=== PATIENT | female | born 1970 | race Caucasian/White ===

== ENCOUNTER 2020-06-14 15:02 | Outpatient (RCR) | payer BC, SELFPAY | END 2020-08-07 23:59 | LOC: IMMUN 15:02 | PROVIDERS: PCP Preventive Medicine Occupational Medicine; Referring Provider Family Medicine; Visit Provider Family Medicine | DX: Z23 Encounter for immunization (principal) | CPT/HCPCS: 0001A; 0002A; 91300 ==

== ENCOUNTER → 2024-10-03 | Outpatient (CLI) | payer OTHER, SELFPAY ==
[2024-10-03 10:24] LABS: Hematocrit 43.5 % (37-47); Hemoglobin 16.0 g/dL (12.0-15.0); Mean Corp Hgb Conc 36.8 g/dL (32-36); Mean Corpuscular Volume 88.4 fL (81-99); Mean Platelet Vol. 10.4 fl (6.2-12.0); Platelet Count 238 K/mm3 (150-450); RBC Distribution Width CV 12.4 % (11.6-14.6); RBC Distribution Width SD 39.7 fl (35.1-43.9); Red Blood Count 4.92 M/mm3 (4.2-5.4); White Blood Count 5.5 K/mm3 (4.4-11.0)
[2024-10-03 10:54] LABS: Cholesterol 187 mg/dL (<=200); Low Density Lipoprotein Calc. 107 mg/dL; Triglycerides 204 mg/dL; Very Low Density Lipoprotein 41 mg/dL (5-40); cholesterol:hdl ratio screen 4.76
[2024-10-03 10:57] LABS: AST(SGOT) 28 U/L (<=31); Alanine Aminotransfer ALT/SGPT 19 U/L (<=34); Albumin, Serum 4.2 g/dL (3.5-5.0); Alkaline Phosphatase 81 U/L (35-104); Anion Gap 10 (5-15); BUN 10 mg/dL (4-19); BUN/Creat Ratio 13.0 RATIO (10-20); Calcium,Total 9.1 mg/dL (7.6-11.0); Carbon Dioxide 23.3 mmol/L (21.0-32.0); Chloride 105 mmol/L (98-108); Globulin 2.5 g/dL (2.2-4.2); Glucose 93 mg/dL (70-99); Potassium 4.5 mmol/L (3.3-5.1)
== END | disposition home or self-care (01) ==
LOC: LAB 09:57
PROVIDERS: PCP Student in an Organized Health Care Education/Training Program; Referring Provider Student in an Organized Health Care Education/Training Program; Visit Provider Student in an Organized Health Care Education/Training Program
DX: I10 Essential (primary) hypertension (principal); Z79.890 Hormone replacement therapy; Z13.1 Encounter for screening for diabetes mellitus; Z13.220 Encounter for screening for lipoid disorders
CPT/HCPCS: 36415; 80053; 80061; 85027

== ENCOUNTER → 2025-02-09 | Outpatient (CLI) | payer OTHER, SELFPAY ==
[2025-02-09 15:48] LABS: Free T3 3.5 pg/mL (2.18-3.98); Vitamin D,25 Hydroxy 104.0 ng/mL (30-100)
--- OUTSIDE RECORDS SUMMARY | 2025-02-09 16:41 | XMS RPT_ITS | CCD ---
Author Organization [facility] Care Team Providers Care Retail Account Manager Name Role Phone FABIO PEDERSON DO Primary Care Physician CANDIDA OLIVO, MILAGROS Shabazz Attending Hillary vailaeusebio PEDERSON DO, FABIO Primary Care Unavailable BESSY HOGAN DO Attending Unavailab le NICOLÁS PURVIS, FABIO Primary Care Unavailable CANDIDA OLIVO, MILAGROS Shabazz Attending Hillary vailable NICOLÁS PURVIS, FABIO Primary Care Unavailable CANDIDA OLIVO, MILAGROS Shabazz Attending Hillary bj PEDERSON DO, FABIO Primary Care Unavailable NICOLÁS PURVIS, FABIO Attending Unavailable NICOÁLS PURVIS, FABIO Primary Care Unavailable SAPNA CASILLAS, NIKKI Primary Care Physician LUIS PURVIS, DR MIKE Primary Care Physician [phone] DR CEE HERNANDEZ DO Primary Care Unavailable LUIS PURVIS, DR MIKE Attending Unavailable SAPNA CASILLAS, NIKKI Primary Care MILAGROS Norris Attending Unavailable MILAGROS TIRADO Attending Unavailable LUIS PURVIS, DR MIKE Primary Care Unavailable SAPNA CASILLAS, NIKKI Primary Care MILAGROS Norris Attending Unavailable Dr. Cee Hernandez DO Primary Care Provider [phone] Dr. Cee Hernandez DO Attending Provider [phone] Dr. Cee Hernandez DO Referring Provider [phone] Cee Hernandez Referring Unavailable Cee Hernandez Attending Unavailable Cee Hernandez Primary Care Unavailable Allergies Allergy Classification Reported Allergen(s) Allergy Type Date of Onset Reaction(s) Facility (17 sources) levoFLOXacin; Translations: [levofloxacin] Drug Allergy Nausea (finding) [facility] Work Phone: Medications Current Medications Medication Drug Class(es) Dates Sig (Normalized) Sig (Original) ascorbic acid 500 mg oral tablet (5 sources) Vitamin C Start: 03-09-2020 Vitamin C 500 mg oral tablet Dose : 500 mg = 1 tab(s), Oral, qDay, # 30 tab(s), 0 Refill(s) Start Date: 03/09/20 Status: Ordered ashwagandha (1 source) Start: 09-01-2024 ashwagandha Oral, BID, 0 Refill(s) Start Date: 09/01/24 Status: Ordered Repeat number: 1 cetirizine hydrochloride 10 mg oral tablet (17 sources) Histamine-1 Receptor Antagonist Start: 08-10-2019 Zyrtec 10 mg oral tablet Dose : 10 mg = 1 tab(s), Oral, qDay, PRN as needed for allergy symptoms, # 10 tab(s), 0 Refill(s) Start Date: 08/10/19 Status: Ordered Quantity: 10.0 Unit: tab(s) Repeat number: 1 24 hr dilTIAZem hydrochloride 120 mg extended release oral capsule (15 sources) Calcium Channel Cherelle Start: 07-01-2023 End: 04-19-2025 take 1 capsule by mouth every hour, then take 1 capsule by mouth once daily dilTIAZem 120 mg/24 hours oral capsule, extended release Dose : 120 mg = 1 cap(s), Oral, qDay, # 90 cap(s), 3 Refill(s), Pharmacy: [facility]/pharmacy #[id number], Essential hypertension, 158, cm, 03/15/24 14:58:00 EST, Height, kg, 03/15/24 14:58:00 EST, Dosing Weight Start Date: 03/15/24 Stop Date: 04/19/25 Status: Ordered Quantity: 90.0 Unit: cap(s) Repeat number: 4 Indications: Essential (primary) hypertension; Start: 06-02-2022 take 1 capsule by mo uth every hour, then take 1 capsule by mouth once daily dilTIAZem 120 mg/24 hours oral capsule, extended release Dose : 120 mg = 1 cap(s), Oral, qDay, # 90 cap(s), 3 Refill(s), [id number], Essential hypertension, 160.5, cm, 06/02/22 9:23:00 EDT, Height, kg, 06/02/22 9:23:00 EDT, Dosing Weight Start Date: 06/02/22 Status: Ordered Start: 05-07-2021 take 1 capsule by [facility] every hour, then take 1 capsule by mouth once daily dilTIAZem 120 mg/24 hours oral capsule, extended release Dose : 120 mg = 1 cap(s), Oral, qDay, # 90 cap(s), 3 Refill(s), Pharmacy: [address], Essential hypertension, 162, cm, 05/07/21 15:59:00 EST, Height, kg, 05/07/21 15:59:00 EST, Dosing Weight Start Date: 05/07/21 Status: Ordered Start: 04-01-2021 take 1 capsule by [facility] every hour, then take 1 capsule by mouth once daily dilTIAZem 120 mg/24 hours oral capsule, extended release Dose : 120 mg = 1 cap(s), Oral, qDay, # 30 cap(s), 1 Refill(s), Pharmacy: [address], Essential hypertension, 162, cm, 04/01/21 13:08:00 EST, Height, kg, 04/01/21 13:08:00 EST, Dosing Weight Start Date: 04/01/21 Status: Ordered Estrogens, Conjugated (FPC) (10 sources) Estrogen Start: 06-02-2022 conjugated est rogens qDay, 0 Refill(s) Start Date: 06/02/22 Status: Ordered Repeat number: 1 Start: 06-02-2022 conjugated est rogens qDay, 0 Refill(s) Start Date: 06/02/22 Status: Ordered ferrous sulfate 200 mg oral tablet (6 sources) Start: 12-09-2022 ferrous sulfat e 200 mg (65 mg elemental iron) oral tablet Dose : 200 mg = 1 tab(s), Oral, Daily, # 30 tab(s), 0 Refill(s) Start Date: 12/09/22 Status: Ordered Quantity: 30.0 Unit: tab(s) Repeat number: 1 flax seed oil 1000 mg oral capsule (10 sources) Start: 06-02-2022 flax seed oil 1000 mg oral capsule Dose : 1,000 mg = 1 cap(s), Oral, Daily, 0 Refill(s) Start Date: 06/02/22 Status: Ordered Repeat number: 1 Start: 06-02-2022 flax seed oil 1000 mg oral capsule Dose : 1,000 mg = 1 cap(s), Oral, Daily, 0 Refill(s) Start Date: 06/02/22 Status: Ordered ketorolac tromethamine 10 mg oral tablet (1 source) Nonsteroidal Anti-inflammatory Drug, Cyclooxygenase Inhibitor Start: 03-23-2021 End: 03-28-2021 ketorolac 10 mg oral tablet Dose : 10 mg = 1 tab(s), Oral, TID, not to exceed 40 mg/day and 5 days duration for all dose forms, X 5 day(s), # 15 tab(s), 0 Refill(s), 03/28/21 18:47:00 EST, Migraine COVID-19 Start Date: 03/23/21 Stop Date: 03/28/21 Status: Ordered liothyronine sodium 0.005 mg oral tablet (3 sources) l-Triiodothyronine Start: 03-15-2024 liothyronin e 5 mcg oral tablet Dose : 5 mcg = 1 tab(s), Oral, Daily, # 90 tab(s), 0 Refill(s) Start Date: 03/15/24 Status: Ordered Quantity: 90.0 Unit: tab(s) Repeat number: 1 Misc Medication (1 source) Start: 09-01-2024 Misc Medicatio n [place], 0 Refill(s), 73.2 Start Date: 09/01/24 Status: Ordered Repeat number: 1 progesterone 100 mg oral capsule (17 sources) Progesterone Start: 03-04-2019 progesterone 1 00 mg oral capsule (NF) Dose : 200 mg = 2 cap(s), Oral, qHS, 0 Refill(s) Start Date: 03/04/19 Status: Ordered Repeat number: 1 Testosterone (17 sources) Androgen Start: 03-04-2019 testosterone 2 % transdermal cream BID, 0 Refill(s) Start Date: 03/04/19 Status: Ordered Repeat number: 1 Start: 03-04-2019 testosterone 2 % transdermal cream BID, 0 Refill(s) Start Date: 03/04/19 Status: Ordered Start: 03-04-2019 testosterone 2 % transdermal cream 0 Refill(s) Start Date: 03/04/19 Status: Ordered Vitamin C 500 mg oral tablet (12 sources) Start: 03-09-2020 Vitamin C 500 mg oral tablet Dose : 500 mg = 1 tab(s), Oral, qDay, # 30 tab(s), 0 Refill(s) Start Date: 03/09/20 Status: Ordered Quantity: 30.0 Unit: tab(s) Repeat number: 1 Start: 03-09-2020 Vitamin C 500 mg oral tablet Dose : 500 mg = 1 tab(s), Oral, qDay, # 30 tab(s), 0 Refill(s) Start Date: 03/09/20 Status: Ordered Vitamin D3 (11 sources) Start: 03-09-2020 Vitamin D3 Dos e : 2,000 unit(s) = 1 cap(s), Oral, BID, # 30 cap(s), 0 Refill(s) Start Date: 03/09/20 Status: Ordered Start: 03-09-2020 Vitamin D3 Dos e : 2,000 unit(s) = 1 cap(s), Oral, Daily, # 30 cap(s), 0 Refill(s) Start Date: 03/09/20 Status: Ordered Vitamin D3 250 mcg (10,000 i ntl units) oral capsule (6 sources) Start: 07-01-2023 Vitamin D3 250 mcg (10,000 intl units) oral capsule Dose : 250 mcg = 1 cap(s), Oral, qDay, 0 Refill(s) Start Date: 07/01/23 Status: Ordered Repeat number: 1 Start: 07-01-2023 Vitamin D3 250 mcg (10,000 intl units) oral capsule Dose : 250 mcg = 1 cap(s), Oral, qDay, 0 Refill(s) Start Date: 07/01/23 Status: Ordered Completed/Discontinued Medications Medication Drug Class(es) Dates Sig (Normalized) Sig (Original) Magnesium (5 sources) Start: 03-09-2020 End: 03-23-2020 Magnesium 250 mg tablet Dose : 250 mg = 1 tab(s), Oral, qDay, OTC, # 28 tab(s), 0 Refill(s) Start Date: 03/09/20 Stop Date: 03/23/20 Status: Ordered magnesium oxide 250 mg oral tablet (12 sources) Start: 03-09-2020 End: 03-23-2020 Magnesium 250 mg tablet Dose : 250 mg = 1 tab(s), Oral, qDay, OTC, # 28 tab(s), 0 Refill(s) Start Date: 03/09/20 Stop Date: 03/23/20 Status: Ordered Quantity: 28.0 Unit: tab(s) Repeat number: 1 Problems Active Problems Problem Classification Problem Date Documented Date Episodic/Chronic Essential hypertension (18 sources) Essential hypertension; Translations: [Hypertensive disorder] Onset: 09-01-2024 04-01-2021 Chronic Headache; including migraine (16 sources) Migraine; Translations: [Migraine, unspecified, not intractable, without status migrainosus] Onset: 03-23-2021 Chronic Malaise and fatigue (1 source) Malaise; Translations: [Other malaise] Episodic Menopausal disorders (1 source) Disorder associated with menstruation AND/OR menopause; Translations: [Menopausal and female climacteric states] Chronic Mood disorders (1 source) Recurrent major depressive episodes, mild 09-01-2024 Chronic Nutritional deficiencies (1 source) Vitamin D deficiency; Translations: [Vitamin D deficiency, unspecified] Chronic Other ear and sense organ disorders (17 sources) Hearing loss 03-04-2019 Chronic Other nutritional; endocrine; and metabolic disorders (17 sources) Body mass index 25-29 - overweight 03-09-2020 Episodic Residual codes; unclassified (1 source) Postmenopausal state 09-01-2024 Episodic Spondylosis; intervertebral disc disorders; other back problems (4 sources) Inflammation of sacroiliac joint 12-19-2021 Chronic Unclassified (20 sources) Patient encounter status 03-04-2019 Past or Other Problems Problem Classification Problem Date Documented Da te Episodic/Chronic Viral infection (1 source) Disease caused by 2019-nCoV; Translations: [COVID-19] Onset: 03-23-2021 Results Test Name Value Interpretation Reference Range Facility Anion gap in Serum or Plasma Ordered By: Cee Hernandez on 10-03-2024 Anion gap [Moles/Vol] 10 mmol/L 07-14 [facility] BUN/creatinine ratioOrdered By: Cee Hernandez on 10-03-2024 Urea nitrogen/Creatinine [Mass ratio] 13.0 mg/mg 12-19 [facility] Bilirubin, totalOrdered By: Cee Hernandez on 10-03-2024 Bilirubin [Mass/Vol] 0.59 mg/dL 0.00-1.30 [facility] CBC-Complete Blood Cnt No Di ffon 10-03-2024 Erythrocyte distribution width (RBC) [Ratio] 12.4 % Normal 11.6-14.6 [facility] Comment on above: Performed By: #### L 100.0500, L500.4100, L500.4050 #### [facility] [address] [place], [address] Hematocrit (Bld) [Volume fraction] 43.5 % Normal 37-47 [facility] Comment on above: Performed By: #### L 100.0500, L500.4100, L500.4050 #### [facility] [address] [place], [address] Hemoglobin (Bld) [Mass/Vol] 16.0 g/dL High 12.0-15.0 [facility] Comment on above: Performed By: #### L 100.0500, L500.4100, L500.4050 #### [facility] [address] [place], [address] MCH (RBC) [Entitic mass] 32.5 pg High 27.0-32.0 [facility] Comment on above: Performed By: #### L 100.0500, L500.4100, L500.4050 #### [facility] [address] [place], [address] MCHC (RBC) [Mass/Vol] 36.8 g/dL High 32-36 [facility] Comment on above: Performed By: #### L 100.0500, L500.4100, L500.4050 #### [facility] [address] [place], [address] MCV (RBC) [Entitic vol] 88.4 fL Normal 81-99 [facility] Comment on above: Performed By: #### L 100.0500, L500.4100, [id number] #### [facility] [address] [place], [address] Platelet mean volume (Bld) [Entitic vol] 10.4 fL Normal 6.2-12.0 [facility] Comment on above: Performed By: #### L 100.0500, L500.4100, L500.4050 #### [facility] [address] [place], [address] Platelets (Bld) [#/Vol] 238 10*3/uL Normal 150-450 [facility] Comment on above: Performed By: #### L 100.0500, L500.4100, L500.4050 #### [facility] [address] [place], [address] RBC (Bld) [#/Vol] 4.92 10*6/uL Normal 4.2-5.4 [facility] Comment on above: Performed By: #### L 100.0500, L500.4100, L500.4050 #### [facility] [address] [place], [address] RDW SD 39.7 fl Normal 35.1-43.9 [facility] Comment on above: Performed By: #### L 100.0500, L500.4100, L500.4050 #### [facility] [address] [place], [address] WBC (Bld) [#/Vol] 5.5 10*3/uL Normal 4.4-11.0 [facility] Comment on above: Performed By: #### L 100.0500, L500.4100, L500.4050 #### [facility] [address] [place], [address] Calculated very low density lipoprotein (VLDL) cholesterol measurementOrdered By: Cee Hernandez on 10-03-2024 Calculated very low density lipoprotein (VLDL) cholesterol measurement 41 mg/dL High 5-40 [facility] Carbon dioxide, total [Moles /volume] in Central venous bloodOrdered By: Cee Hernandez on 10-03-2024 CO2 [Moles/Vol] 23.3 mmol/L 21.0-32.0 [facility] Chloride assayOrdered By: Yahaira Hernandez on 10-03-2024 Chloride [Moles/Vol] 105 mmol/L 98-108 [facility] Comprehensive Metabolic Prof ilon 10-03-2024 Albumin [Mass/Vol] 4.2 g/dL Normal 3.5-5.0 [facility] Comment on above: Performed By: #### L 100.0500, L500.4100, L500.4050 #### [facility] [address] [place], [address] Albumin/Globulin [Mass ratio] 1.7 {ratio} Normal 0.9-2.4 [facility] Comment on above: Performed By: #### L 100.0500, L500.4100, L500.4050 #### [facility] [address] [place], [address] ALK PHOS 81 U/L Normal 35-104 [facility] Comment on above: Performed By: #### L 100.0500, L500.4100, L500.4050 #### [facility] [address] [place], [address] ALT [Catalytic activity/Vol] 19 U/L Normal <=34 [facility] Comment on above: Performed By: #### L 100.0500, L500.4100, L500.4050 #### [facility] [address] [place], [address] AST [Catalytic activity/Vol] 28 U/L Normal <=31 [facility] Comment on above: Result Comment: Hemo lysis present, Results??could be affected. ?? Performed By: #### L 100.0500, L500.4100, L500.4050 #### [facility] [address] [place], [address] Bilirubin [Mass/Vol] 0.59 mg/dL Normal 0.00-1.30 [facility] Comment on above: Performed By: #### L 100.0500, L500.4100, L500.4050 #### [facility] [address] [place], [address] BUN/CRE 13.0 RATIO Normal 10-20 [facility] Comment on above: Performed By: #### L 100.0500, L500.4100, L500.4050 #### [facility] [address] [place], [address] Calcium [Mass/Vol] 9.1 mg/dL Normal 7.6-11.0 [facility] Comment on above: Performed By: #### L 100.0500, L500.4100, L500.4050 #### [facility] [address] [place], [address] Chloride [Moles/Vol] 105 mmol/L Normal 98-108 [facility] Comment on above: Performed By: #### L 100.0500, L500.4100, L500.4050 #### [facility] [address] [place], [address] CO2 [Moles/Vol] 23.3 mmol/L Normal 21.0-32.0 [facility] Comment on above: Performed By: #### L 100.0500, L500.4100, L500.4050 #### [facility] [address] [place], [address] Creatinine [Mass/Vol] 0.79 mg/dL Normal 0.70-1.20 [facility] Comment on above: Performed By: #### L 100.0500, L500.4100, L500.4050 #### [facility] [address] [place], [address] GAP 10 Normal 5-15 [facility] Comment on above: Performed By: #### L 100.0500, L500.4100, L500.4050 #### [facility] [address] [place], [address] GFR/1.73 sq M.predicted among non-blacks MDRD (S/P/Bld) [Vol rate/Area] 88 mL/min/{1.73_m2} Normal >60 [facility] Comment on above: Result Comment: mL/m in/1.73m2 CKD-EPI Creatinine Equation (2020) Performed By: #### L 100.0500, L500.4100, L500.4050 #### [facility] [address] [place], [address] Globulin (S) [Mass/Vol] 2.5 g/dL Normal 2.2-4.2 [facility] Comment on above: Performed By: #### L 100.0500, L500.4100, L500.4050 #### [facility] [address] [place], [address] Glucose [Mass/Vol] 93 mg/dL Normal 70-99 [facility] Comment on above: Performed By: #### L 100.0500, L500.4100, L500.4050 #### [facility] [address] [place], [address] Potassium [Moles/Vol] 4.5 mmol/L Normal 3.3-5.1 [facility] Comment on above: Result Comment: Hemo lysis present, Results??could be affected. ?? Performed By: #### L 100.0500, L500.4100, L500.4050 #### [facility] [address] [place], [address] Sodium [Moles/Vol] 139 mmol/L Normal 133-145 [facility] Comment on above: Performed By: #### L 100.0500, L500.4100, L500.4050 #### [facility] [address] [place], [address] T PROT 6.7 g/dL Normal 5.9-8.4 [facility] Comment on above: Performed By: #### L 100.0500, L500.4100, L500.4050 #### [facility] [address] [place], [address] Urea nitrogen [Mass/Vol] 10 mg/dL Normal 4-19 [facility] Comment on above: Performed By: #### L 100.0500, L500.4100, L500.4050 #### [facility] [address] [place], [address] Erythrocyte distribution wid th ratioOrdered By: Cee Hernandez on 10-03-2024 Erythrocyte distribution width (RBC) [Ratio] 12.4 % 11.6-14.6 [facility] Erythrocyte distribution wid th standard deviationOrdered By: Cee Hernandez on 10-03-2024 Erythrocyte distribution width (RBC) [Ratio] 39.7 fl 35.1-43.9 [facility] Glomerular filtration rate ( GFR) estimation/1.73 sq m using serum, plasma, or whole bOrdered By: Cee Hernandez on 10-03-2024 GFR/1.73 sq M.predicted among non-blacks MDRD (S/P/Bld) [Vol rate/Area] 88 mL/min/{1.73_m2} >60 [facility] Comment on above: mL/min/1.73m2 CKD-EP I Creatinine Equation (2020) Hematocrit Auto (Bld) [Volum e fraction]Ordered By: Cee Hernandez on 10-03-2024 Hematocrit (Bld) [Volume fraction] 43.5 % 37-47 [facility] Hemoglobin measurementOrdere d By: Cee Hernandez on 10-03-2024 Hemoglobin (Bld) [Mass/Vol] 16.0 g/dL High 12.0-15.0 [facility] LDL calc ser/plasOrdered By: Cee Hernandez on 10-03-2024 Cholesterol in LDL [Mass/Vol] 107 mg/dL [facility] Comment on above: Zznmztkesa=768-400 m g/dL & Higher Snhx=164 mg/dL or greaterFriedwald Equation for LDL-C Laboratory - Chemistry and C hemistry - challengeOrdered By: Cee Hernandez on 10-03-2024 AST [Catalytic activity/Vol] 28 U/L <32 [facility] Comment on above: Hemolysis present, R esults could be affected. Lipid Profileon 10-03-2024 CHOL:HDL 4.76 Normal [facility] Comment on above: Performed By: #### L 100.0500, L500.4100, L500.4050 #### [facility] [address] [place], [address] Cholesterol [Mass/Vol] 187 mg/dL Normal <=[address] [facility] Comment on above: Result Comment: Chol esterol level, Desirable <200 mg/dL Borderline high cholesterol 200-239 mg/dL High cholesterol >=240 mg/dL Recommendations of the NCEP Adult Treatment Panel for the following risk-cutoff thresholds for the [place] population. Performed By: #### L 100.0500, L500.4100, L500.4050 #### [facility] [address] [place], [address] Cholesterol in HDL [Mass/Vol] 39 mg/dL Low [facility] Comment on above: Result Comment: Rossi onal Cholesterol Education Program (NCEP) guidelines: <40 mg/dL: Low HDL-cholesterol (major risk factor for CHD) >= 60 mg/dL: High HDL-cholesterol (negative risk factor for CHD) HDL-cholesterol is affected by a number of factors, e.g. smoking, exercise, hormones, sex and age. Performed By: #### L 100.0500, L500.4100, L500.4050 #### [facility] [address] [place], [address] Cholesterol in LDL [Mass/Vol] 107 mg/dL Normal [facility] Comment on above: Result Comment: Bord wzjgxz=112-748 mg/dL Higher Iogy=691 mg/dL or greater Friedwald Equation for LDL-C Performed By: #### L 100.0500, L500.4100, L500.4050 #### [facility] [address] [place], [address] Cholesterol in VLDL [Mass/Vol] 41 mg/dL High 5-40 [facility] Comment on above: Performed By: #### L 100.0500, L500.4100, L500.4050 #### [facility] [address] [place], [address] Triglyceride [Mass/Vol] 204 mg/dL High [facility] Comment on above: Result Comment: The drugs N-Acetylcysteine and Metamizole may falsely depress this assay. Normal range: <150 mg/dL Borderline High: 150-199 mg/dL High: 200-499 mg/dL Very High: >500 mg/dL Performed By: #### L 100.0500, L500.4100, L500.4050 #### [facility] [address] [place], [address] MCV (mean corpuscular volume ) determinationOrdered By: Cee Hernandez on 10-03-2024 MCV (RBC) [Entitic vol] 88.4 fL 81-99 [facility] Mean corpuscular hemoglobin (MCH) determinationOrdered By: Cee Hernandez on 10-03-2024 MCH (RBC) [Entitic mass] 32.5 pg High 27.0-32.0 [facility] Mean corpuscular hemoglobin concentration (MCHC) determinationOrdered By: Cee Hernandez on 10-03-2024 MCHC (RBC) [Mass/Vol] 36.8 g/dL High 32-36 [facility] Mean platelet volume determi nationOrdered By: Cee Hernandez on 10-03-2024 Platelet mean volume (Bld) [Entitic vol] 10.4 fL 6.2-12.0 [facility] Platelet countOrdered By: Yahaira Hernandez on 10-03-2024 Platelets (Bld) [#/Vol] 238 10*3/uL 150-450 [facility] Potassium measurement (mass/ volume)Ordered By: Cee Hernandez on 10-03-2024 Potassium (Unsp spec) [Mass/Vol] 4.5 mmol/L 3.3-5.1 [facility] Comment on above: Hemolysis present, R esults could be affected. RBC Auto (Bld) [#/Vol]Ordere d By: Cee Hernandez on 10-03-2024 RBC (Bld) [#/Vol] 4.92 10*6/uL 4.2-5.4 [facility] Screening total cholesterol/ high density lipoprotein (HDL) cholesterol ratioOrdered By: Cee Hernandez on 10-03-2024 Cholesterol.total/Choles terol in HDL [Mass ratio] 4.76 {ratio} [facility] Serum creatinine measurement (mass/volume)Ordered By: Cee Hernandez on 10-03-2024 Creatinine [Mass/Vol] 0.79 mg/dL 0.70-1.20 [facility] Serum globulin measurementOr dered By: Cee Hernandez on 10-03-2024 Globulin (S) [Mass/Vol] 2.5 g/dL 2.2-4.2 [facility] Serum glucose measurement (m ass/volume)Ordered By: Cee Hernandez on 10-03-2024 Glucose [Mass/Vol] 93 mg/dL 70-99 [facility] Serum or plasma alanine pollock otransferase (ALT) measurementOrdered By: Cee Hernandez on 10-03-2024 ALT [Catalytic activity/Vol] 19 U/L <35 [facility] Serum or plasma albumin kandi urement (mass/volume)Ordered By: Cee Hernandez on 10-03-2024 Albumin [Mass/Vol] 4.2 g/dL 3.5-5.0 [facility] Serum or plasma albumin/glob ulin mass ratioOrdered By: Cee Hernandez on 10-03-2024 Albumin/Globulin [Mass ratio] 1.7 {ratio} 0.9-2.4 [facility] Serum or plasma alkaline ivan sphatase measurementOrdered By: Cee Hernandez on 10-03-2024 ALP [Catalytic activity/Vol] 81 U/L 35-104 [facility] Serum or plasma calcium kandi urement (mass/volume)Ordered By: Cee Hernandez on 10-03-2024 Calcium [Mass/Vol] 9.1 mg/dL 7.6-11.0 [facility] Serum or plasma cholesterol in HDL measurement (mass/volume)Ordered By: Cee Hernandez on 10-03-2024 Cholesterol in HDL [Mass/Vol] 39 mg/dL Low >40 [facility] Comment on above: National Cholesterol Education Program (NCEP) guidelines:<40 mg/dL: Low HDL-cholesterol (major risk factor for CHD)>= 60 mg/dL: High HDL-cholesterol (negative risk factor for CHD)HDL-cholesterol is affected by a number of factors, e.g. smoking, exercise, hormones, sex and age. Serum or plasma cholesterol measurement (mass/volume)Ordered By: Cee Hernandez on 10-03-2024 Cholesterol [Mass/Vol] 187 mg/dL <201 [facility] Comment on above: Cholesterol level, D esirable <200 mg/dLBorderline high cholesterol 200-239 mg/dLHigh cholesterol >=240 mg/dLRecommendations of the NCEP Adult Treatment Panel for the following risk-cutoff thresholds for the [place] population. Serum or plasma urea nitroge n measurement (mass/volume)Ordered By: Cee Hernandez on 10-03-2024 Urea nitrogen [Mass/Vol] 10 mg/dL 4-19 [facility] Sodium levelOrdered By: Cee Hernandez on 10-03-2024 Sodium [Moles/Vol] 139 mmol/L 133-145 [facility] Total proteinOrdered By: Giovanni Hernandez on 10-03-2024 Protein [Mass/Vol] 6.7 g/dL 5.9-8.4 [facility] Triglycerides measurementOrd ered By: Cee Hernandez on 10-03-2024 Triglyceride [Mass/Vol] 204 mg/dL High <199 [facility] Comment on above: The drugs N-Acetylcy steine and Metamizole may falsely depress this assay. Normal range: <150 mg/dLBorderline High: 150-199 mg/dLHigh: 200-499 mg/dLVery High: >500 mg/dL White blood cell (WBC) count Ordered By: Cee Hernandez on 10-03-2024 WBC (Bld) [#/Vol] 5.5 10*3/uL 4.4-11.0 [facility] LABORATORYOrdered By: Merna Sommers on 09-01-2024 Albumin DL <= 20 mg/L (U) [Mass/Vol] 11.0 mg/L Invalid Interpretation Code AO ADM SS Albumin/Creatinine DL <= 20 mg/L (U) [Mass ratio] 7 mg/G Normal 0 - 30 mg/G AO Chem istry S Creatinine (U) [Mass/Vol] 168.4 mg/dL Invalid Interpretation Code AO ADM SS MALBRon 09-01-2024 U Creatinine 168.4 mg/dL Normal [facility] Comment on above: Performed By: #### M ALBR #### [address] [address] U Microalb 11.0 mg/L Normal [facility] Comment on above: Performed By: #### M ALBR #### [address] [address] U Ratio Alb/Cre 7 mg/G Normal 0-30 [facility] Comment on above: Performed By: #### M ALBR #### [address] [address] MA MAMMOGRAM SCREENING BILAT ERAL W/TOMOon 08-15-2024 MA MAMMOGRAM SCREENING BILATERAL W/JONI ORIGINAL FROM: [address] [address] PROCEDURE FOR: [place] [address] Home: PID#: [id number] Exam#: [id number] : 1970 Age: 54 TO: MILAGROS TIRADO APRN [employer] [address], [address] [place] [address] EXAMINATION: SCREENING DIGITAL BILATERAL MAMMOGRAM WITH TOMOSYNTHESIS, 08/15/2024 2:46 pm TECHNIQUE: Screening mammography of the bilateral breasts was performed with tomosynthesis. 2D standard and 3D tomosynthesis combination imaging performed through both breasts in the MLO and CC projection. Computer aided detection was utilized in the interpretation of this exam. COMPARISON: 07/09/2023, 06/12/2022 HISTORY: Breast cancer screening. FINDINGS: BREAST DENSITY: The breasts are heterogeneously dense, which may obscure small masses. There are benign appearing calcifications in both breasts. There are no significant masses or calcifications. IMPRESSION: No mammographic evidence of malignancy. Continued screening with annual mammograms is recommended. Iraida Aguilar risk calculations, generated with the history provided, report this patient's 10 year risk and lifetime risk for developing breast cancer at 2.7% and 8.5%, respectively. Based on this assessment tool, if the patient's calculated lifetime risk is below 20%, then the patient is considered at average risk for developing breast cancer. If the patient's calculated lifetime risk is at or above 20%, then the patient is considered high risk for developing breast cancer and may be a candidate for supplemental breast MRI screening in addition to annual mammographic screening per the [place] [employer]. BIRADS: BI-RADS: 2: Benign RECALL: 1 year screening RECALL TYPE: mammo LETTER SENT: Normal BI-RADS 1 and 2 Interpreted by: Quinn Cho MD Preliminary Report By: Quinn Cho MD Electronically signed By Quinn Cho MD Dictated Date: 08/15/2024 4:56:34 PM Prelim Date: 08/15/2024 4:57:31 PM Sign Date: 08/15/2024 4:57:31 PM Ordering Provider: MILAGROS TIRADO copy to: CEE HERNANDEZ DO, ph: [phone], fax: NO FAX Shingle Carrier: KASEY BARTH RT(R)(M)(CT) letter sent: Normal BI-RADS 1 and 2 Mammogram BI-RADS: 2 Benign Normal [facility] DHEASon 07-30-2024 DHEA-SO4 75.31 mcg/dL Normal 25.90-460.20 [facility] Comment on above: Result Comment: No te - New Reference Range in effect 19 Performed By: #### M ALBR #### [address] [address] E2on 07-30-2024 Estradiol Level 63.32 pg/mL Normal [facility] Comment on above: Result Comment: Adult Female E2 Reference Ranges: Follicular phase 19.5 - 144.2 pg/mL Midcycle 63.9 - 356.7 pg/mL Luteal phase 55.8 - 214.2 pg/mL Post menopausal 0 - 33.2 pg/mL Performed By: #### M ALBR #### [address] [address] FT3on 07-30-2024 Free T3 [Mass/Vol] 3.25 pg/mL Normal 2.30-4.00 [facility] Comment on above: Performed By: #### T SH, VIDH, FT3 #### [address] [address] #### TESTO, PROG, DHEAS, E2 #### [place] [address] LABORATORYOrdered By: SYSTEM SYSTEM on 07-30-2024 25-hydroxyvitamin D3 [Mass/Vol] 71.9 ng/mL Invalid Interpretation Code [facility] Comment on above: Interpretive Data: I nterpretive Values Based on Total 25(OH) Vitamin D: Deficient <20 ng/mL Insufficient 20 - <30 ng/mL Sufficient 30-100 ng/mL DHEA-S [Mass/Vol] 75.31 ug/dL Normal 25.90 - 460.20 mcg/dL [facility] Comment on above: Interpretive Data: * *Note - New Reference Range in effect 19 E2 [Mass/Vol] 63.32 pg/mL Invalid Interpretation Code [facility] Comment on above: Interpretive Data: Adult Female E2 Reference Ranges: Follicular phase 19.5 - 144.2 pg/mL Midcycle 63.9 - 356.7 pg/mL Luteal phase 55.8 - 214.2 pg/mL Post menopausal 0 - 33.2 pg/mL Free T3 [Mass/Vol] 3.25 pg/mL Normal 2.30 - 4. 00 pg/mL AO ADM SS Progesterone [Mass/Vol] 23.8 ng/mL Invalid Interpretation Code ADM Comment on above: Interpretive Data: A dult Female Progesterone Reference Ranges: Follicular phase <0.21 - 1.40 ng/mL Luteal phase 3.34 - 25.56 ng/mL Mid-Luteal phase 4.44 - 28.03 ng/mL Postmenopausal <0.21 - 0.73 ng/ml Female: First trimester 11.22 - 90.00 ng/ml Second trimester 25.55 - 89.40 ng/ml Third trimester 48.40 - 422.50 ng/ml Testosterone [Mass/Vol] 56.54 ng/dL Invalid Interpretation Code ADM Comment on above: Interpretive Data: N ormal Reference Ranges for Females: Female Premenopause Dhd03-022.01-47.94 ng/dL Female Postmenopause Irc85-27<7.00-45.62 ng/dL TSH Qn 0.60 m[IU]/L Normal 0.36 - 3.74 mcIU/mL [facility] PROGon 07-30-2024 Progesterone Level 23.8 ng/mL Normal [facility] Comment on above: Result Comment: Adul t Female Progesterone Reference Ranges: Follicular phase <0.21 - 1.40 ng/mL Luteal phase 3.34 - 25.56 ng/mL Mid-Luteal phase 4.44 - 28.03 ng/mL Postmenopausal <0.21 - 0.73 ng/ml Female: First trimester 11.22 - 90.00 ng/ml Second trimester 25.55 - 89.40 ng/ml Third trimester 48.40 - 422.50 ng/ml Performed By: #### M ALBR #### [address] [address] TESTOon 07-30-2024 Testosterone Lvl 56.54 ng/dL Normal [facility] Comment on above: Result Comment: Norm al Reference Ranges for Females: Female Premenopause Age 21-60 9.01-47.94 ng/dL Female Postmenopause Age 45-89 <7.00-45.62 ng/dL Performed By: #### M ALBR #### [address] [address] TSHon 07-30-2024 TSH Qn 0.60 m[IU]/L Normal 0.36-3.74 [facility] Comment on above: Performed By: #### T STEVENSON, LETTY, FT3 #### [address] [address] #### TESTO, PROG, DHEAS, E2 #### [place] [address] VIDHon 07-30-2024 Vit. D 25-Hydroxy 71.9 ng/mL Normal [facility] Comment on above: Result Comment: Inte rpretive Values Based on Total 25(OH) Vitamin D: Deficient <20 ng/mL Insufficient 20 - <30 ng/mL Sufficient 30-100 ng/mL Performed By: #### M ALBR #### [address] [address] DHEASon 03-05-2024 DHEA-SO4 79.41 mcg/dL Normal 25.90-460.20 [facility] Comment on above: Result Comment: No te - New Reference Range in effect 19 Performed By: #### T STEVENSON, FT3 #### [place] [id number] #### DHEAS, E2, TESTO, PROG #### [place] [address] E2on 03-05-2024 Estradiol Level 170.46 pg/mL Normal [facility] Comment on above: Result Comment: No te - New Reference Range in effect 19 Adult Female E2 Reference Ranges: Follicular phase 19.5 - 144.2 pg/mL Midcycle 63.9 - 356.7 pg/mL Luteal phase 55.8 - 214.2 pg/mL Post menopausal 0 - 33.2 pg/mL Performed By: #### T SH, FT3 #### [address] [address] #### DHEAS, E2, TESTO, PROG #### [place] [address] FT3on 03-05-2024 Free T3 [Mass/Vol] 2.71 pg/mL Normal 2.30-4.00 [facility] Comment on above: Performed By: #### T , FT3 #### [facility] [address] [place], [place] [address] #### DHEAS, E2, TESTO, PROG #### [facility] [address] [place] [address] LABORATORYOrdered By: SYSTEM SYSTEM on 03-05-2024 DHEA-S [Mass/Vol] 79.41 ug/dL Normal 25.90 - 460.20 mcg/dL [facility] Comment on above: Interpretive Data: * *Note - New Reference Range in effect 19 E2 [Mass/Vol] 170.46 pg/mL Invalid Interpretation Code [facility] Comment on above: Interpretive Data: * *Note - New Reference Range in effect 19 Adult Female E2 Reference Ranges: Follicular phase 19.5 - 144.2 pg/mL Midcycle 63.9 - 356.7 pg/mL Luteal phase 55.8 - 214.2 pg/mL Post menopausal 0 - 33.2 pg/mL Free T3 [Mass/Vol] 2.71 pg/mL Normal 2.30 - 4. 00 pg/mL [facility] Progesterone [Mass/Vol] 34.5 ng/mL Invalid Interpretation Code [facility] Comment on above: Interpretive Data: A dult Female Progesterone Reference Ranges: Follicular phase <0.21 - 1.40 ng/mL Luteal phase 3.34 - 25.56 ng/mL Mid-Luteal phase 4.44 - 28.03 ng/mL Postmenopausal <0.21 - 0.73 ng/ml Female: First trimester 11.22 - 90.00 ng/ml Second trimester 25.55 - 89.40 ng/ml Third trimester 48.40 - 422.50 ng/ml Testosterone [Mass/Vol] 231.17 ng/dL Invalid Interpretation Code [facility] Comment on above: Interpretive Data: N ormal Reference Ranges for Females: Female Premenopause Pjg26-544.01-47.94 ng/dL Female Postmenopause Ufc90-81<7.00-45.62 ng/dL TSH Qn 1.45 m[IU]/L Normal 0.36 - 3.74 mcIU/mL AO ADM SS PROGon 03-05-2024 Progesterone Level 34.5 ng/mL Normal [facility] Comment on above: Result Comment: Adul t Female Progesterone Reference Ranges: Follicular phase <0.21 - 1.40 ng/mL Luteal phase 3.34 - 25.56 ng/mL Mid-Luteal phase 4.44 - 28.03 ng/mL Postmenopausal <0.21 - 0.73 ng/ml Female: First trimester 11.22 - 90.00 ng/ml Second trimester 25.55 - 89.40 ng/ml Third trimester 48.40 - 422.50 ng/ml Performed By: #### T SH, FT3 #### [place] [address] #### DHEAS, E2, TESTO, PROG #### [place] [address] TESTOon 03-05-2024 Testosterone Lvl 231.17 ng/dL Normal [facility] Comment on above: Result Comment: Norm al Reference Ranges for Females: Female Premenopause Age 21-60 9.01-47.94 ng/dL Female Postmenopause Age 45-89 <7.00-45.62 ng/dL Performed By: #### T SH, FT3 #### [address] [address] #### DHEAS, E2, TESTO, PROG #### [place] [address] TSHon 03-05-2024 TSH Qn 1.45 m[IU]/L Normal 0.36-3.74 [facility] Comment on above: Performed By: #### T SH, FT3 #### [place] [address] #### DHEAS, E2, TESTO, PROG #### [place] [address] DHEASon 10-03-2023 DHEA-SO4 71.13 mcg/dL Normal 25.90-460.20 [facility] ([place]) Comment on above: Result Comment: No te - New Reference Range in effect 19 Performed By: #### Alba GALINDO, TESTO, E2, PROG #### [place] [address] #### FT3, TSH #### [address] [address] E2on 10-03-2023 Estradiol Level 40.51 pg/mL Normal [facility] ([place]) Comment on above: Result Comment: No te - New Reference Range in effect 19 Adult Female E2 Reference Ranges: Follicular phase 19.5 - 144.2 pg/mL Midcycle 63.9 - 356.7 pg/mL Luteal phase 55.8 - 214.2 pg/mL Post menopausal 0 - 33.2 pg/mL Performed By: #### Alba GALINDO, TESTO, E2, PROG #### [place] [address] #### FT3, TSH #### [address] [address] FT3on 10-03-2023 Free T3 [Mass/Vol] 2.21 pg/mL Low 2.30-4.00 [facility] ([place]) Comment on above: Performed By: #### Alba HEAS, TESTO, E2, PROG #### [place] [address] #### FT3, TSH #### [address] [address] LABORATORYOrdered By: SYSTEM SYSTEM on 10-03-2023 DHEA-S [Mass/Vol] 71.13 ug/dL Normal 25.90 - 460.20 mcg/dL [facility] Comment on above: Interpretive Data: * *Note - New Reference Range in effect 19 E2 [Mass/Vol] 40.51 pg/mL Invalid Interpretation Code [facility] Comment on above: Interpretive Data: * *Note - New Reference Range in effect 19 Adult Female E2 Reference Ranges: Follicular phase 19.5 - 144.2 pg/mL Midcycle 63.9 - 356.7 pg/mL Luteal phase 55.8 - 214.2 pg/mL Post menopausal 0 - 33.2 pg/mL Free T3 [Mass/Vol] 2.21 pg/mL Low 2.30 - 4. 00 pg/mL AO ADM SS Progesterone [Mass/Vol] 5.9 ng/mL Invalid Interpretation Code ADM Comment on above: Interpretive Data: A dult Female Progesterone Reference Ranges: Follicular phase <0.21 - 1.40 ng/mL Luteal phase 3.34 - 25.56 ng/mL Mid-Luteal phase 4.44 - 28.03 ng/mL Postmenopausal <0.21 - 0.73 ng/ml Female: First trimester 11.22 - 90.00 ng/ml Second trimester 25.55 - 89.40 ng/ml Third trimester 48.40 - 422.50 ng/ml Testosterone [Mass/Vol] 63.95 ng/dL Invalid Interpretation Code ADM Comment on above: Interpretive Data: N ormal Reference Ranges for Females: Female Premenopause Gcr62-933.01-47.94 ng/dL Female Postmenopause Pcz13-01<7.00-45.62 ng/dL TSH Qn 0.93 m[IU]/L Normal 0.36 - 3.74 mcIU/mL AO ADM SS PROGon 10-03-2023 Progesterone Level 5.9 ng/mL Normal [facility] ([place]) Comment on above: Result Comment: Adul t Female Progesterone Reference Ranges: Follicular phase <0.21 - 1.40 ng/mL Luteal phase 3.34 - 25.56 ng/mL Mid-Luteal phase 4.44 - 28.03 ng/mL Postmenopausal <0.21 - 0.73 ng/ml Female: First trimester 11.22 - 90.00 ng/ml Second trimester 25.55 - 89.40 ng/ml Third trimester 48.40 - 422.50 ng/ml Performed By: #### D HEAS, TESTO, E2, PROG #### [address] [address] #### FT3, TSH #### [address] [address] TESTOon 10-03-2023 Testosterone Lvl 63.95 ng/dL Normal [facility] ([place]) Comment on above: Result Comment: Norm al Reference Ranges for Females: Female Premenopause Age 21-60 9.01-47.94 ng/dL Female Postmenopause Age 45-89 <7.00-45.62 ng/dL Performed By: #### D HEAS, TESTO, E2, PROG #### [place] [address] #### FT3, TSH #### [place] [address] TSHon 10-03-2023 TSH Qn 0.93 m[IU]/L Normal 0.36-3.74 [facility] ([place]) Comment on above: Performed By: #### D HEAS, TESTO, E2, PROG #### [place] [address] #### FT3, TSH #### [place] [address] MA MAMMOGRAM SCREENING BILAT ERAL W/TOMOon 07-09-2023 MA MAMMOGRAM SCREENING BILATERAL W/JONI ORIGINAL FROM: [place] [address] PROCEDURE FOR: [place] [address] Home: PID#: [id number] Exam#: [id number] : 1970 Age: 52 TO: MILAGROS TIRADO APRN [facility] [address] [place] [address] EXAMINATION: SCREENING DIGITAL BILATERAL MAMMOGRAM WITH TOMOSYNTHESIS, 07/09/2023 8:49 am TECHNIQUE: Screening mammography of the bilateral breasts was performed with tomosynthesis. 2D standard and 3D tomosynthesis combination imaging performed through both breasts in the MLO and CC projection. Computer aided detection was utilized in the interpretation of this exam. COMPARISON: 06/12/2022, 04/22/2021, 03/19/2020 HISTORY: Breast cancer screening. FINDINGS: BREAST DENSITY: Heterogeneously dense Benign-appearing calcification within the right breast. There are no significant masses or calcifications. IMPRESSION: No mammographic evidence of malignancy. Continued screening with annual mammograms is recommended. Iraida Luna risk calculations, generated with the history provided, report this patient's 10 year risk and lifetime risk for developing breast cancer at 2.5% and 8.8%, respectively. Based on this assessment tool, if the patient's calculated lifetime risk is below 20%, then the patient is considered at average risk for developing breast cancer. If the patient's calculated lifetime risk is at or above 20%, then the patient is considered high risk for developing breast cancer and may be a candidate for supplemental breast MRI screening in addition to annual mammographic screening per the [place] [employer]. I have personally reviewed the images of this examination and agree with the resident's findings and interpretation. BIRADS: MAMMOGRAM BI-RADS: 2: Benign finding RECALL: 1 year screening RECALL TYPE: mammo LETTER SENT: Normal BI-RADS 1 and 2 Interpreted by: Sarah Hoagn Preliminary Report By: Alessandra Martínez Electronically signed By Sarah Hoang Dictated Date: 07/09/2023 1:41:05 PM Prelim Date: 07/09/2023 2:09:40 PM Sign Date: 07/09/2023 2:09:40 PM Ordering Provider: MILAGROS TIRADO copy to: FABIO PEDERSON DO, ph: [phone], fax: NO FAX Shingle Carrier: IDALIA CANDELARIO RT(R)(M)(CT) DIRECTOR OF [employer]ETING letter sent: Normal BI-RADS 1 and 2 Mammogram BI-RADS: [address] [facility] ([place]) E2on 06-27-2023 Estradiol Level <11.[address] [facility] ([place]) Comment on above: Result Comment: No te - New Reference Range in effect 19 Adult Female E2 Reference Ranges: Follicular phase 19.5 - 144.2 pg/mL Midcycle 63.9 - 356.7 pg/mL Luteal phase 55.8 - 214.2 pg/mL Post menopausal 0 - 33.2 pg/mL Performed By: #### [facility] #### [address] [address] #### E2, PROG, TESTO #### [place] [address] PROGon 06-27-2023 Progesterone Level 9.5 ng/mL Normal [facility] ([place]) Comment on above: Result Comment: Adul t Female Progesterone Reference Ranges: Follicular phase <0.21 - 1.40 ng/mL Luteal phase 3.34 - 25.56 ng/mL Mid-Luteal phase 4.44 - 28.03 ng/mL Postmenopausal <0.21 - 0.73 ng/ml Female: First trimester 11.22 - 90.00 ng/ml Second trimester 25.55 - 89.40 ng/ml Third trimester 48.40 - 422.50 ng/ml Performed By: #### D HEAS, TESTO, E2, PROG #### [place] [address] #### FT3, TSH #### [place] [address] TESTOon 06-27-2023 Testosterone Lvl 72.36 ng/dL Normal [facility] ([place]) Comment on above: Result Comment: Norm al Reference Ranges for Females: Female Premenopause Age 21-60 9.01-47.94 ng/dL Female Postmenopause Age 45-89 <7.00-45.62 ng/dL Performed By: #### D HEAS, TESTO, E2, PROG #### [place] [address] #### FT3, TSH #### [address] [address] VIDHon 06-27-2023 Vit. D 25-Hydroxy 54.4 ng/mL Normal [facility] ([place]) Comment on above: Result Comment: Inte rpretive Values Based on Total 25(OH) Vitamin D: Deficient <20 ng/mL Insufficient 20 - <30 ng/mL Sufficient 30-100 ng/mL Performed By: #### V IDH #### [place] [address] #### E2, PROG, TESTO #### [place] [address] E2on 02-28-2023 Estradiol Level 47.33 pg/mL Normal [facility] ([place]) Comment on above: Result Comment: No te - New Reference Range in effect 19 Adult Female E2 Reference Ranges: Follicular phase 19.5 - 144.2 pg/mL Midcycle 63.9 - 356.7 pg/mL Luteal phase 55.8 - 214.2 pg/mL Post menopausal 0 - 33.2 pg/mL Performed By: #### D HEAS, TESTO, E2, PROG #### [facility] [address] [place] [address] #### FT3, TSH #### [address] [address] LABORATORYOrdered By: SYSTEM SYSTEM on 02-28-2023 E2 [Mass/Vol] 47.33 pg/mL Invalid Interpretation Code [facility] Comment on above: Interpretive Data: * *Note - New Reference Range in effect 19 Adult Female E2 Reference Ranges: Follicular phase 19.5 - 144.2 pg/mL Midcycle 63.9 - 356.7 pg/mL Luteal phase 55.8 - 214.2 pg/mL Post menopausal 0 - 33.2 pg/mL Progesterone [Mass/Vol] 6.8 ng/mL Invalid Interpretation Code ADM SS Comment on above: Interpretive Data: A dult Female Progesterone Reference Ranges: Follicular phase <0.21 - 1.40 ng/mL Luteal phase 3.34 - 25.56 ng/mL Mid-Luteal phase 4.44 - 28.03 ng/mL Postmenopausal <0.21 - 0.73 ng/ml Female: First trimester 11.22 - 90.00 ng/ml Second trimester 25.55 - 89.40 ng/ml Third trimester 48.40 - 422.50 ng/ml Testosterone [Mass/Vol] 38.31 ng/dL Invalid Interpretation Code ADM SS Comment on above: Interpretive Data: N ormal Reference Ranges for Females: Female Premenopause Tda10-181.01-47.94 ng/dL Female Postmenopause Uum55-89<7.00-45.62 ng/dL PROGon 02-28-2023 Progesterone Level 6.8 ng/mL Normal [facility] ([place]) Comment on above: Result Comment: Adul t Female Progesterone Reference Ranges: Follicular phase <0.21 - 1.40 ng/mL Luteal phase 3.34 - 25.56 ng/mL Mid-Luteal phase 4.44 - 28.03 ng/mL Postmenopausal <0.21 - 0.73 ng/ml Female: First trimester 11.22 - 90.00 ng/ml Second trimester 25.55 - 89.40 ng/ml Third trimester 48.40 - 422.50 ng/ml Performed By: #### Alba HEAS, TESTO, E2, PROG #### [place] [address] #### FT3, TSH #### [address] [address] TESTOon 02-28-2023 Testosterone Lvl 38.31 ng/dL Normal [facility] ([place]) Comment on above: Result Comment: Norm al Reference Ranges for Females: Female Premenopause Age 21-60 9.01-47.94 ng/dL Female Postmenopause Age 45-89 <7.00-45.62 ng/dL Performed By: #### Alba HEALE, TESTO, E2, PROG #### [place] [address] #### FT3, TSH #### [address] [address] .GFRon 11-22-2022 GFR 96 ml/min/1.73sqm Normal [facility] ([place]) Comment on above: Result Comment: GFR Population mean for , Non- Americans Ages 20-29 = 116 mL/min/1.73 sq.m. Ages 30-39 = 107 mL/min/1.73 sq.m. Ages 40-49 = 99 mL/min/1.73 sq.m. Ages 50-59 = 93 mL/min/1.73 sq.m. Ages 60-69 = 85 mL/min/1.73 sq.m. Ages 70+ = 75 mL/min/1.73 sq.m. Chronic Kidney Disease: Less than 60 mL/min/1.73 square meters End Stage Renal Disease: Less than 15 mL/min/1.73 square meters Performed By: #### Alba GALINDO, TESTO, E2, PROG #### [place] [address] #### FT3, TSH #### [address] [address] GFR Non- 79 ml/min/1.73sqm Normal [facility] ([place]) Comment on above: Result Comment: GFR Population mean for , Non- Americans Ages 20-29 = 116 mL/min/1.73 sq.m. Ages 30-39 = 107 mL/min/1.73 sq.m. Ages 40-49 = 99 mL/min/1.73 sq.m. Ages 50-59 = 93 mL/min/1.73 sq.m. Ages 60-69 = 85 mL/min/1.73 sq.m. Ages 70+ = 75 mL/min/1.73 sq.m. Chronic Kidney Disease: Less than 60 mL/min/1.73 square meters End Stage Renal Disease: Less than 15 mL/min/1.73 square meters Performed By: #### Alba GALINDO, TESTO, E2, PROG #### [place] [address] #### FT3, TSH #### [address] [address] [facility] Albumin Level 3.6 G/dL Normal 3.5-5.0 [facility] ([place]) Comment on above: Performed By: #### Alba GALINDO, TESTO, E2, PROG #### [place] [address] #### FT3, TSH #### [address] [address] Albumin/Globulin [Mass ratio] 1.2 {ratio} Normal 1.1-2.5 [facility] ([place]) Comment on above: Performed By: #### Alba MCDANIELSAS, TESTO, E2, PROG #### [place] [address] #### FT3, TSH #### [address] [address] ALP [Catalytic activity/Vol] 97 U/L Normal 40-135 [facility] ([place]) Comment on above: Performed By: #### Alba GALINDO, TESTO, E2, PROG #### [place] [address] #### FT3, TSH #### [address] [address] ALT [Catalytic activity/Vol] 33 U/L Normal 14-59 [facility] ([place]) Comment on above: Performed By: #### Alba GALINDO, TESTO, E2, PROG #### [place] [address] #### FT3, TSH #### [place] [address] AST [Catalytic activity/Vol] 21 U/L Normal 10-40 [facility] ([place]) Comment on above: Performed By: #### Alba GALINDO TESTO, E2, PROG #### [place] [address] #### FT3, TSH #### [place] [id number] Bili Total 0.7 mg/dL Normal 0.2-1.0 [facility] ([place]) Comment on above: Result Comment: Use of this assay is not recommended for patients undergoing treatment with eltrombopag due to the potential for falsely elevated results. Performed By: #### Alba GALINDO TESTO, E2, PROG #### [place] [address] #### FT3, TSH #### [address] [address] BUN/Creatinine Ratio 9 ratio Normal 7-27 Replaced by [facility] ([place]) Comment on above: Performed By: #### Alba GALINDO, TESTO, E2, PROG #### [place] [address] #### FT3, TSH #### [address] [address] Calcium [Mass/Vol] 8.4 mg/dL Normal 8.4-10.2 [facility] ([place]) Comment on above: Performed By: #### Alba GALINDO, TESTO, E2, PROG #### [place] [address] #### FT3, TSH #### [address] [address] Chloride [Moles/Vol] 100 mmol/L Normal 98-107 Replaced by [facility] ([place]) Comment on above: Performed By: #### Alba GALINDO, TESTO, E2, PROG #### [place] [address] #### FT3, TSH #### [place] [address] CO2 [Moles/Vol] 28 mmol/L Normal 22-29 [facility] ([place]) Comment on above: Performed By: #### Alba GALINDO, TESTO, E2, PROG #### [place] [address] #### FT3, TSH #### [address] [address] Creatinine [Mass/Vol] 0.76 mg/dL Normal 0.55-1.02 [facility] ([place]) Comment on above: Performed By: #### Alba GALINDO, TESTO, E2, PROG #### [place] [address] #### FT3, TSH #### [address] [address] Electrolyte Balance 9.0 mEq/L Normal 4.0-15.0 [facility] ([place]) Comment on above: Performed By: #### Alba GALINDO, TESTO, E2, PROG #### [place] [address] #### FT3, TSH #### [address] [address] Globulin 2.9 G/dL Normal [facility] ([place]) Comment on above: Performed By: #### Alba GALINDO, TESTO, E2, PROG #### [place] [address] #### FT3, TSH #### [address] [address] Glucose [Mass/Vol] 80 mg/dL Normal 70-105 [facility] ([place]) Comment on above: Performed By: #### Alba GALINDO, TESTO, E2, PROG #### [place] [address] #### FT3, TSH #### [address] [address] Potassium [Moles/Vol] 4.1 mmol/L Normal 3.5-5.1 [facility] ([place]) Comment on above: Performed By: #### Alba GALINDO, TESTO, E2, PROG #### [place] [address] #### FT3, TSH #### [address] [address] Sodium [Moles/Vol] 137 mmol/L Normal 136-145 [facility] ([place]) Comment on above: Performed By: #### Alba GALINDO, TESTO, E2, PROG #### [place] [address] #### FT3, TSH #### [address] [address] Total Protein 6.5 G/dL Normal 6.4-8.2 [facility] ([place]) Comment on above: Performed By: #### Alba GALINDO, TESTO, E2, PROG #### [place] [address] #### FT3, TSH #### [address] [address] Urea nitrogen [Mass/Vol] 7 mg/dL Normal 7-18 [facility] ([place]) Comment on above: Performed By: #### Alba HEALE, TESTO, E2, PROG #### [place] [address] [place] [address] #### FT3, TSH #### [place] [address] [place], [place] [address] LABORATORYOrdered By: Angela De La Fuente on 11-22-2022 Albumin DL <= 20 mg/L (U) [Mass/Vol] 184 mcg/dL Invalid Interpretation Code AO ADM SS Albumin/Creatinine DL <= 20 mg/L (U) [Mass ratio] 5 mcg/mg Invalid Interpretation Code 0 - 30 mcg/mg AO ADM SS Creatinine (U) [Mass/Vol] 35.1 mg/dL Invalid Interpretation Code 28.0 - 117.0 mg/dL AO ADM SS LABORATORYOrdered By: SYSTEM SYSTEM on 11-22-2022 Albumin BCP dye [Mass/Vol] 3.6 G/dL Invalid Interpretation Code 3.5 - 5.0 G/dL AO ADM SS Albumin/Globulin [Mass ratio] 1.2 {ratio} Invalid Interpretation Code 1.1 - 2.5 ratio AO ADM SS ALP [Catalytic activity/Vol] 97 U/L Invalid Interpretation Code 40 - 135 U/L AO ADM SS ALT With P-5'-P [Catalytic activity/Vol] 33 U/L Invalid Interpretation Code 14 - 59 U/L AO ADM SS AST With P-5'-P [Catalytic activity/Vol] 21 U/L Invalid Interpretation Code 10 - 40 U/L AO ADM SS Bilirubin [Mass/Vol] 0.7 mg/dL Invalid Interpretation Code 0.2 - 1.0 mg/dL AO ADM SS Comment on above: Interpretive Data: U se of this assay is not recommended for patients undergoing treatment with eltrombopag due to the potential for falsely elevated results. Calcium [Mass/Vol] 8.4 mg/dL Invalid Interpretation Code 8.4 - 10.2 mg/dL AO ADM SS Chloride [Moles/Vol] 100 mmol/L Invalid Interpretation Code 98 - 107 mmol/L AO ADM SS CO2 [Moles/Vol] 28 mmol/L Invalid Interpretation Code 22 - 29 mmol/L AO ADM SS Creatinine [Mass/Vol] 0.76 mg/dL Invalid Interpretation Code 0.55 - 1.02 mg/dL AO ADM SS Electrolyte Balance 9.0 mEq/L Invalid Interpretation Code 4.0 - 15.0 mEq/L AO ADM SS GFR/1.73 sq M.predicted among blacks MDRD (S/P/Bld) [Vol rate/Area] 96 ml/min/1.73sqm Invalid Interpretation Code AO Chemistry S Comment on above: Interpretive Data: GFR Population mean for , Non- Americans Ages 20-29 = 116 mL/min/1.73 sq.m. Ages 30-39 = 107 mL/min/1.73 sq.m. Ages 40-49 = 99 mL/min/1.73 sq.m. Ages 50-59 = 93 mL/min/1.73 sq.m. Ages 60-69 = 85 mL/min/1.73 sq.m. Ages 70+ = 75 mL/min/1.73 sq.m. Chronic Kidney Disease: Less than 60 mL/min/1.73 square meters End Stage Renal Disease: Less than 15 mL/min/1.73 square meters GFR/1.73 sq M.predicted among non-blacks MDRD (S/P/Bld) [Vol rate/Area] 79 ml/min/1.73sqm Invalid Interpretation Code AO Chemistry S Comment on above: Interpretive Data: GFR Population mean for , Non- Americans Ages 20-29 = 116 mL/min/1.73 sq.m. Ages 30-39 = 107 mL/min/1.73 sq.m. Ages 40-49 = 99 mL/min/1.73 sq.m. Ages 50-59 = 93 mL/min/1.73 sq.m. Ages 60-69 = 85 mL/min/1.73 sq.m. Ages 70+ = 75 mL/min/1.73 sq.m. Chronic Kidney Disease: Less than 60 mL/min/1.73 square meters End Stage Renal Disease: Less than 15 mL/min/1.73 square meters Globulin 2.9 G/dL Invalid Interpretation Code AO ADM SS Glucose [Mass/Vol] 80 mg/dL Invalid Interpretation Code 70 - 105 mg/dL AO ADM SS Potassium [Moles/Vol] 4.1 mmol/L Invalid Interpretation Code 3.5 - 5.1 mmol/L AO ADM SS Protein [Mass/Vol] 6.5 G/dL Invalid Interpretation Code 6.4 - 8.2 G/dL AO ADM SS Sodium [Moles/Vol] 137 mmol/L Invalid Interpretation Code 136 - 145 mmol/L AO ADM SS Urea nitrogen [Mass/Vol] 7 mg/dL Invalid Interpretation Code 7 - 18 mg/dL AO ADM SS Urea nitrogen/Creatinine [Mass ratio] 9 ratio Invalid Interpretation Code 7 - 27 ratio AO ADM SS MALBRon 11-22-2022 U Creatinine 35.1 mg/dL Normal 28.0-117.0 [facility] ([place]) Comment on above: Performed By: #### M ALBR #### [place] [id number] [place], [place] [address] U Microalb 184 mcg/dL Normal [facility] ([place]) Comment on above: Performed By: #### M ALBR #### [facility] [place] [address] [place], [place] [address] U Ratio Alb/Cre 5 mcg/mg Normal 0-30 [facility] ([place]) Comment on above: Performed By: #### M ALBR #### [place] [address] [place], [place] [address] LABORATORYOrdered By: [employer] on 08-19-2022 25-hydroxyvitamin D3 [Mass/Vol] 56.3 ng/mL Invalid Interpretation Code AO ADM SS DHEA-S [Mass/Vol] 87.51 ug/dL Invalid Interpretation Code 25.90 - 460.20 mcg/dL AH ADM SS E2 [Mass/Vol] 45.68 pg/mL Invalid Interpretation Code AH ADM SS Follitropin Qn 62.6 m[IU]/mL Invalid Interpretation Code AH ADM SS Progesterone [Mass/Vol] 18.3 ng/mL Invalid Interpretation Code AH ADM SS Testosterone [Mass/Vol] 43.15 ng/dL Invalid Interpretation Code AH ADM SS LABORATORYOrdered By: [employer] SYSTEM on 04-26-2022 E2 [Mass/Vol] 20.92 pg/mL Invalid Interpretation Code AH ADM SS Free T3 [Mass/Vol] 2.75 pg/mL Invalid Interpretation Code 2.30 - 4.00 pg/mL AO ADM SS Progesterone [Mass/Vol] 4.9 ng/mL Invalid Interpretation Code AH ADM SS Testosterone [Mass/Vol] 43.53 ng/dL Invalid Interpretation Code AH ADM SS TSH Qn 0.53 m[IU]/L Invalid Interpretation Code 0.36 - 3.74 mcIU/mL AO ADM SS LABORATORYOrdered By: Hortencia Anguiano on 09-21-2021 Free T3 [Mass/Vol] 2.62 pg/mL Invalid Interpretation Code 2.30 - 4.00 pg/mL AO ADM SS TSH Qn 1.06 m[IU]/L Invalid Interpretation Code 0.36 - 3.74 mcIU/mL AO ADM SS LABORATORYOrdered By: Hortencia Anguiano on 04-06-2021 TSH Qn 0.93 m[IU]/L Invalid Interpretation Code 0.36 - 3.74 mcIU/mL AO ADM SS LABORATORYOrdered By: Angela De La Fuente on 03-23-2021 Troponin I.cardiac DL <= 0.01 ng/mL [Mass/Vol] 64.8 ng/L Invalid Interpretation Code 0.0 - 51.4 ng/L AO ADM SS Basophil, Absolute 0.10 103/mcL Invalid Interpretation Code 0.00 - 0.19 10^3/mcL AO Auto Heme SS Basophils/100 WBC (Bld) 0.6 % Invalid Interpretation Code 0.0 - 2.5 % AO Auto Heme SS Calcium [Mass/Vol] 9.6 mg/dL Invalid Interpretation Code 8.4 - 10.2 mg/dL AO ADM SS Chloride [Moles/Vol] 102 mmol/L Invalid Interpretation Code 98 - 107 mmol/L AO ADM SS CO2 [Moles/Vol] 22 mmol/L Invalid Interpretation Code 22 - 29 mmol/L AO ADM SS Creatinine [Mass/Vol] 0.94 mg/dL Invalid Interpretation Code 0.55 - 1.02 mg/dL AO ADM SS Electrolyte Balance 17.0 mEq/L Invalid Interpretation Code 4.0 - 15.0 mEq/L AO ADM SS Eosinophil, Absolute 0.00 103/mcL Invalid Interpretation Code 0.00 - 0.40 10^3/mcL AO Auto Heme SS Eosinophils/100 WBC (Bld) 0.2 % Invalid Interpretation Code 0.0 - 7.0 % AO Auto Heme SS Erythrocyte distribution width (RBC) [Ratio] 12.5 % Invalid Interpretation Code 11.5 - 14.5 % AO Auto Heme SS Fibrin D-dimer DDU (PPP) [Mass/Vol] ng/mL D-DU Invalid Interpretation Code 0 - 230 ng/mL D-DU AO Coag SS Glucose [Mass/Vol] 146 mg/dL Invalid Interpretation Code 70 - 105 mg/dL AO ADM SS Hematocrit (Bld) [Volume fraction] 43.2 % Invalid Interpretation Code 37.0 - 47.0 % AO Auto Heme SS Hemoglobin (Bld) [Mass/Vol] 15.5 G/dL Invalid Interpretation Code 12.0 - 16.0 G/dL AO Auto Heme SS Lymphocyte, Absolute 1.90 103/mcL Invalid Interpretation Code 0.77 - 3.85 10^3/mcL AO Auto Heme SS Lymphocytes/100 WBC (Bld) 17.6 % Invalid Interpretation Code 10.0 - 50.0 % AO Auto Heme SS MCH (RBC) [Entitic mass] 31.2 pg Invalid Interpretation Code 27.0 - 31.2 pg AO Auto Heme SS MCHC (RBC) [Mass/Vol] 36.0 G/dL Invalid Interpretation Code 33.0 - 37.0 G/dL AO Auto Heme SS MCV (RBC) [Entitic vol] 86.9 fL Invalid Interpretation Code 80.0 - 94.0 fL AO Auto Heme SS Monocyte, Absolute 0.40 103/mcL Invalid Interpretation Code 0.15 - 1.00 10^3/mcL AO Auto Heme SS Monocytes/100 WBC (Bld) 3.9 % Invalid Interpretation Code 1.7 - 13.0 % AO Auto Heme SS Neutrophil, Absolute 8.30 103/mcL Invalid Interpretation Code 2.85 - 6.16 10^3/mcL AO Auto Heme SS Neutrophils/100 WBC (Bld) 77.7 % Invalid Interpretation Code 37.0 - 80.0 % AO Auto Heme SS Platelet mean volume (Bld) [Entitic vol] 7.6 fL Invalid Interpretation Code 7.4 - 10.4 fL AO Auto Heme SS Platelets (Bld) [#/Vol] 331 103/mcL Invalid Interpretation Code 130 - 400 10^3/mcL AO Auto Heme SS Potassium [Moles/Vol] 3.4 mmol/L Invalid Interpretation Code 3.5 - 5.1 mmol/L AO ADM SS RBC (Bld) [#/Vol] 4.98 106/mcL Invalid Interpretation Code 4.20 - 5.40 10^6/mcL AO Auto Heme SS Sodium [Moles/Vol] 141 mmol/L Invalid Interpretation Code 136 - 145 mmol/L AO ADM SS Troponin I.cardiac DL <= 0.01 ng/mL [Mass/Vol] 63.5 ng/L Invalid Interpretation Code 0.0 - 51.4 ng/L AO ADM SS Urea nitrogen [Mass/Vol] 14 mg/dL Invalid Interpretation Code 7 - 18 mg/dL AO ADM SS Urea nitrogen/Creatinine [Mass ratio] 15 ratio Invalid Interpretation Code 7 - 27 ratio AO ADM SS WBC (Bld) [#/Vol] 10.70 103/mcL Invalid Interpretation Code 4.60 - 10.80 10^3/mcL AO Auto Heme SS LABORATORYOrdered By: SYSTEM SYSTEM on 03-23-2021 GFR 76 ml/min/1.73sqm Invalid Interpretation Code AO Chemistry S GFR Non- 63 ml/min/1.73sqm Inval id Interpretation Code AO Chemistry S LABORATORYOrdered By: Venkatesh Castro on 03-13-2021 ADMITTED TO INTENSIVE CARE UNIT FOR CONDITION OF INTEREST:FIND:PT:^PATIEN T:ORD: No (03/13/21 12:15 PM) Invalid Interpretation Code AO Auto Urine SS EMPLOYED IN A HEALTHCARE SETTING:FIND:PT:^PATIENT :ORD: No (03/13/21 12:15 PM) Invalid Interpretation Code AO Auto Urine SS FIRST TEST FOR CONDITION OF INTEREST:FIND:PT:^PATIEN T:ORD: No (03/13/21 12:15 PM) Invalid Interpretation Code AO Auto Urine SS HAS SYMPTOMS RELATED TO CONDITION OF INTEREST:FIND:PT:^PATIEN T:ORD: Yes (03/13/21 12:15 PM) Invalid Interpretation Code AO Auto Urine SS Illness or injury onset date and time [id number] Invalid Interpretation Code AO Auto Urine SS Patient was hospitalized because of this condition No (03/13/21 12:15 PM) Invalid Interpretation Code AO Auto Urine SS status Not (03/13/21 12:15 PM) Invalid Interpretation Code AO Auto Urine SS RESIDES IN A CONGREGATE CARE SETTING:FIND:PT:^PATIENT :ORD: No (03/13/21 12:15 PM) Invalid Interpretation Code AO Auto Urine SS SARS-CoV-2 (COVID-19) RNA MITCHELL+probe Ql (Resp) Positive *ABN* (03/13/21 12:15 PM) Invalid Interpretation Code Negative AO Auto Urine SS SARS-CoV-2 (COVID-19) RNA MITCHELL+probe Ql (Unsp spec) Positive results are indicative of the presence of SARS-CoV-2 RNA; clinical correlation with patient history and other diagnostic information is necessary to determine patient infection status. Positive results do not rule out bacterial infection or co-infection with other viruses. The agent detected may not be the definite cause of disease. Laboratories within the [facility] and its territories are required to report all positive results to the appropriate public health authorities.Detecti on of analyte target(s) does not imply that the corresponding virus(es) are infectious or are the causative agents for clinical symptoms.There is a risk of false positive values resulting from cross-contamination by target organisms, their nucleic acids or amplified product, or from non-specific signals in the assay.JumpTime SARS-CoV-2 Assay is a Real-Time reverse-transcripta se polymerase chain reaction (RT-PCR) based qualitative in vitro diagnostic test intended for the qualitative detection of nucleic acid from the SARS-CoV-2 in nasopharyngeal swab specimens collected from individuals suspected of COVID-19 by their healthcare provider. Testing is limited to laboratories certified under the Clinical Laboratory Improvement Amendments of 1988 (CLIA), 42 U.S.C. 263a, to perform moderate and high complexity tests. Invalid Interpretation Code AO Auto Urine SS Vital Signs Date Time Vital Sign Value Performing Clinician Amy crowell 03-23-2021 17:47-0500 Diastolic blood pressure 98 mm[Hg] DR AZIZA KANG MD [facility] 03-23-2021 17:47-0500 Heart rate 103 /min DR AZIZA KANG MD [facility] 03-23-2021 17:47-0500 Respiratory rate 18 /min DR AZIZA KANG MD [facility] 03-23-2021 17:47-0500 Systolic blood pressure 150 mm[Hg] DR AZIZA KANG MD [facility] 03-23-2021 16:50-0500 Diastolic blood pressure 102 mm[Hg] DR AZIZA KANG MD [facility] 03-23-2021 16:50-0500 Heart rate 120 /min DR AZIZA KANG MD [facility] 03-23-2021 16:50-0500 Respiratory rate 18 /min DR AZIZA KANG MD [facility] 03-23-2021 16:50-0500 Systolic blood pressure 155 mm[Hg] DR AZIZA KANG MD [facility] 03-23-2021 14:36-0500 Body temperature 98.24 [degF] DR AZIZA KANG MD [facility] 03-23-2021 14:36-0500 Diastolic blood pressure 121 mm[Hg] DR AZIZA KANG MD [facility] 03-23-2021 14:36-0500 Heart rate 150 /min DR AZIZA KANG MD [facility] 03-23-2021 14:36-0500 Respiratory rate 18 /min DR AZIZA KANG MD [facility] 03-23-2021 14:36-0500 Systolic blood pressure 174 mm[Hg] DR AZIZA KANG MD [facility] Encounters Encounter Date Encounter Type Care Provider Facility Start: 10-03-2024 End: 10-03-[address] Cee Hernandez DO Work Phone: -Laboratory Start: 10-03-2024 End: 10-03-[address] Cee Hernandez DO -Laboratory Work Phone: Start: 10-03-2024 End: 10-03-2024 ambulatory Cee Hernandez Facility:[facility] Start: 09-01-2024 End: 09-05-[address] CEE HERNANDEZ DO Facility:[facility] Start: 09-01-2024 End: 09-05-[address] CEE HERNANDEZ DO [facility] Start: 08-15-2024 End: 08-15-2024 ambulatory MILAGROS TIRADO Facility:[facility] Start: 08-15-2024 End: 08-15-2024 Patient encounter procedure MILAGROS TIRADO SEED LABORATORY TECHNICIAN-CNM [facility] Start: 07-30-2024 End: 07-30-2024 ambulatory NIKKI SAPNA SEED LABORATORY TECHNICIAN-DOLPHIN RESEARCHER Facility:[facility] Start: 07-30-2024 End: 07-30-2024 Patient encounter procedure RAYCESAR Shabazz CANDIDA SEED LABORATORY TECHNICIAN-CNM [facility] Start: 03-05-2024 End: 03-05-2024 ambulatory NIKKI SAPNA SEED LABORATORY TECHNICIAN-DOLPHIN RESEARCHER Facility:[facility] Start: 03-05-2024 End: 03-05-2024 Patient encounter procedure RAYCESAR Shabazz CANDIDA SEED LABORATORY TECHNICIAN-CNM [facility] Start: 10-03-2023 End: 10-03-2023 ambulatory MILAGROS TIRADO SEED LABORATORY TECHNICIAN-CNM Facility: Start: 10-03-2023 End: 10-03-2023 Patient encounter procedure MILAGROS Mele CANDIDA SEED LABORATORY TECHNICIAN-CNM [facility] Start: 07-09-2023 End: 07-09-2023 ambulatory MILAGROS TIRADO SEED LABORATORY TECHNICIAN-CNM Facility:[facility] Start: 07-09-2023 End: 07-09-2023 Patient encounter procedure MILAGROS TIRADO SEED LABORATORY TECHNICIAN-CNM [facility] Start: 06-27-2023 End: 06-27-2023 ambulatory MILAGROS TIRADO SEED LABORATORY TECHNICIAN-CNM Facility:[facility] Start: 02-28-2023 End: 02-28-2023 ambulatory BESSY HOGAN DO Facility:[facility] Start: 02-28-2023 End: 02-28-2023 Patient encounter procedure FABIO PEDERSON DO [facility] Start: 11-22-2022 End: 11-22-2022 ambulatory FABIO PEDERSON DO Facility:[facility] Start: 11-22-2022 End: 11-22-2022 Patient encounter procedure FABIO PEDERSON DO [facility] Start: 08-19-2022 End: 08-19-2022 Patient encounter procedure MILAGROS TIRADO SEED LABORATORY TECHNICIAN-CNM [facility] Start: 06-12-2022 End: 06-12-2022 Patient encounter procedure MILAGROS TIRADO SEED LABORATORY TECHNICIAN-CNM [facility] Start: 04-26-2022 End: 04-26-2022 Patient encounter procedure MILAGROS TIRADO SEED LABORATORY TECHNICIAN-CNM [facility] Start: 09-21-2021 End: 09-21-2021 Patient encounter procedure MILAGROS TIRADO SEED LABORATORY TECHNICIAN-CNM [facility] Start: 04-22-2021 End: 04-22-2021 Patient encounter procedure MILAGROS TIRADO SEED LABORATORY TECHNICIAN-CNM [facility] Start: 04-06-2021 End: 04-06-2021 Patient encounter procedure FABIO PEDERSON DO [facility] Start: 03-23-2021 End: 03-23-2021 Emergency department patient visit DR AZIZA KANG MD [facility] Start: 03-13-2021 End: 03-13-2021 Patient encounter procedure FABIO PEDERSON DO [facility] Procedures Date Procedure Procedure Detail Performing Clinician Start: 03-02-2011 Hysterectomy FABIO FELDMAN DO Destructive procedure FABIO PEDERSON DO Comment on above: uterine Payers Date Payer Category Payer Self-pay 2024 Private Health Insurance [id number] 2023 Unknown [id number] 2022 Unknown [id number] 2022 Unknown [id number] 1970 Unknown [id number] ..[id number] 1970 Unknown [id number] ..[id number] 1970 Unknown [id number] ..[id number] 1970 Unknown [id number] ..[id number] 1970 Unknown [id number] .16.8 [id number] 1968 Unknown [id number] 2.16. [id number] 1968 Unknown [id number] 2.16. [id number] 1968 Unknown [id number] 2.16.8 [id number] 1970 Unknown [id number] 2.16.8 [id number] Unknown [id number] Unknown [id number] 2.16.8 [id number] Social History Date Type Detail Facility Start: 03-04-2019 Never smoked t obacco (finding) [facility] Start: 1970 Sex Assigned At Female [facility] O[facility] Start: 08-25-2018 Sex Female (finding) [facility] Tobacco smoking stat [facility] Unknown if ever smoked [facility] Work Phone: Clinical Notes 03-23-2021 to 07-09-2023 LaboratoryRadiologyLaboratory Note Date & Type Note Facility 07-09-2023 Note ORIGINAL FROM: [address] [address] PROCEDURE FOR: [place] [address] Home: PID#: [id number] Exam#: [id number] : 1970 Age: 52 TO: MILAGROS TIRADO APRN DOLPHIN RESEARCHER [address] [address] EXAMINATION: SCREENING DIGITAL BILATERAL MAMMOGRAM WITH TOMOSYNTHESIS, 07/09/2023 8:49 am TECHNIQUE: Screening mammography of the bilateral breasts was performed with tomosynthesis. 2D standard and 3D tomosynthesis combination imaging performed through both breasts in the MLO and CC projection. Computer aided detection was utilized in the interpretation of this exam. COMPARISON: 06/12/2022, 04/22/2021, 03/19/2020 HISTORY: Breast cancer screening. FINDINGS: BREAST DENSITY: Heterogeneously dense Benign-appearing calcification within the right breast. There are no significant masses or calcifications. IMPRESSION: No mammographic evidence of malignancy. Continued screening with annual mammograms is recommended. Iraida zick risk calculations, generated with the history provided, report this patient's 10 year risk and lifetime risk for developing breast cancer at 2.5% and 8.8%, respectively. Based on this assessment tool, if the patient's calculated lifetime risk is below 20%, then the patient is considered at average risk for developing breast cancer. If the patient's calculated lifetime risk is at or above 20%, then the patient is considered high risk for developing breast cancer and may be a candidate for supplemental breast MRI screening in addition to annual mammographic screening per the [employer]. I have personally reviewed the images of this examination and agree with the resident's findings and interpretation. BIRADS: MAMMOGRAM BI-RADS: 2: Benign finding RECALL: 1 year screening RECALL TYPE: mammo LETTER SENT: Normal BI-RADS 1 and 2 Interpreted by: Sarah Hoang Preliminary Report By: Alessandra Mratínez Electronically signed By Sarah Hoang Dictated Date: 07/09/2023 1:41:05 PM Prelim Date: 07/09/2023 2:09:40 PM Sign Date: 07/09/2023 2:09:40 PM Ordering Provider: MILAGROS TIRADO copy to: FABIO PEDERSON DO, ph: [phone], fax: NO FAX Shingle Carrier: IDALIA CANDELARIO RT(R)(M)(CT) DIRECTOR OF CONSUMER MARKETING letter sent: Normal BI-RADS 1 and 2 Mammogram BI-RADS: 2 Benign [facility] 03-23-2021 Hospital Discharg e instructions Patient Education 03/23/2021 18:47:30 COVID-19 Prevent the Spread of COVID-19 If You Are Sick (07/19/2019)(CUSTOM) Prevent the Spread of COVID-19 If You Are Sick Accessible version: https://www.cdc.gov/coronavirus /2019-ncov/tc-nmn-dto-sick/step s-when-sick.html If you are sick with COVID-19 or think you might have COVID-19, follow the steps below to help protect other people in your home and community. Stay home except to get medical care. Stay home. Most people with COVID-19 have mild illness and are able to recover at home without medical care. Do not leave your home, except to get medical care. Do not visit public areas. Take care of yourself. Get rest and stay hydrated. Get medical care when needed. Call your doctor before you go to their office for care. But, if you have trouble breathing or other concerning symptoms, call 911 for immediate help. Avoid public transportation, ride-sharing, or taxis. Separate yourself from other people and pets in your home. As much as possible, stay in a specific room and away from other people and pets in your home. Also, you should use a separate bathroom, if available. If you need to be around other people or animals in or outside of the home, wear a cloth face covering. See COVID-19 and Animals if you have questions about pets: https://www.cdc.gov/coronavirus /2019ncov/faq.html#AHNAH03kogog ls Monitor your symptoms. Common symptoms of COVID-19 include fever and cough. Trouble breathing is a more serious symptom that means you should get medical attention. Follow care instructions from your healthcare provider and local health department. Your local health authorities will give instructions on checking your symptoms and reporting information. If you develop emergency warning signs for COVID-19 get medical attention immediately. Emergency warning signs include*: Trouble breathing Persistent pain or pressure in the chest New confusion or not able to be woken Bluish lips or face *This list is not all inclusive. Please consult your medical provider for any other symptoms that are severe or concerning to you. Call 911 if you have a medical emergency. If you have a medical emergency and need to call 911, notify the twisting operator that you have or think you might have, COVID-19. If possible, put on a facemask before medical help arrives Call ahead before visiting your doctor. Call ahead. Many medical visits for routine care are being postponed or done by phone or telemedicine. If you have a medical appointment that cannot be postponed, call your doctor s office. This will help the office protect themselves and other patients. If you are sick, wear a cloth covering over your nose and mouth. You should wear a cloth face covering over your nose and mouth if you must be around other people or animals, including pets (even at home). You don t need to wear the cloth face covering if you are alone. If you can t put on a cloth face covering (because of trouble breathing for example), cover your coughs and sneezes in some other way. Try to stay at least 6 feet away from other people. This will help protect the people around you. Note: During the COVID-19 pandemic, medical grade facemasks are reserved for healthcare workers and some first responders. You may need to make a cloth face covering using a scarf or bandana. Cover your coughs and sneezes. Cover your mouth and nose with a tissue when you cough or sneeze. Throw used tissues in a lined trash can. Immediately wash your hands with soap and water for at least 20 seconds. If soap and water are not available, clean your hands with an alcohol-based hand monitor technician that contains at least 60% alcohol. Clean your hands often. Wash your hands often with soap and water for at least 20 seconds. This is especially important after blowing your nose, coughing, or sneezing; going to the bathroom; and before eating or preparing food. Use hand monitor technician if soap and water are not available. Use an alcohol-based hand monitor technician with at least 60% alcohol, covering all surfaces of your hands and rubbing them together until they feel dry. Soap and water are the best option, especially if your hands are visibly dirty. \ Avoid touching your eyes, nose, and mouth with unwashed hands. Avoid sharing personal household items. Do not share dishes, drinking glasses, cups, eating utensils, towels, or bedding with other people in your home. Wash these items thoroughly after using them with soap and water or put them in the cell lead. Clean all high-touch surfaces everyday. Clean and disinfect high-touch surfaces in your sick room and bathroom. Let someone else clean and disinfect surfaces in common areas, but not your bedroom and bathroom. If a caregiver or other person needs to clean and disinfect a sick person s bedroom or bathroom, they should do so on an as-needed basis. The caregiver/other person should wear a mask and wait as long as possible after the sick person has used the bathroom High-touch surfaces include phones, remote controls, counters, tabletops, doorknobs, bathroom fixtures, toilets, keyboards, tablets, and bedside tables. Clean and disinfect areas that may have blood, stool, or body fluids on them. Use household front desk associate and disinfectants. Clean the area or item with soap and water or another detergent if it is dirty. Then use a household disinfectant. Be sure to follow the instructions on the label to ensure safe and effective use of the product. Many products recommend keeping the surface wet for several minutes to ensure germs are killed. Many also recommend precautions such as wearing gloves and making sure you have good ventilation during use of the product. Most EPA-registered household disinfectants should be effective. How to discontinue home isolation. People with COVID-19 who have stayed home (home isolated) can stop home isolation under the following conditions: If you will not have a test to determine if you are still contagious, you can leave home after these three things have happened: You have had no fever for at least 72 hours (that is three full days of no fever without the use of medicine that reduces fevers) AND other symptoms have improved (for example, when your cough or shortness of breath has improved) AND at least 10 days have passed since your symptoms first appeared. If you will be tested to determine if you are still contagious, you can leave home after these three things have happened: You no longer have a fever (without the use of medicine that reduces fevers) AND other symptoms have improved (for example, when your cough or shortness of breath has improved) AND you received two negative tests in a row, 24 hours apart. Your doctor will follow CDC guidelines. In all cases, follow the guidance of your healthcare provider and local health department. The decision to stop home isolation should be made in consultation with your healthcare provider and state and local health departments. Local decisions depend on local circumstances. cdc.gov/coronavirus 03/23/2021 18:47:24 Headache, Migraine, Classic Migraine Headache This often severe type of headache is different from other types of headaches in that symptoms other than pain occur with the headache. Nausea and vomiting, lightheadedness, sensitivity to light (photophobia), and other visual disturbances are common migraine symptoms. The pain may last from a few hours to several days. It is not clear why migraines occur but certain factors called triggers can raise the risk of having a migraine attack. A migraine may be triggered by emotional stress or depression, or by hormone changes during the menstrual cycle. Other triggers include control pills, overuse of migraine medicines, alcohol or caffeine, foods with tyramine (such as aged cheese and wine), eyestrain, weather changes, missed meals, or too little or too much sleep. Home care Follow these tips when taking care of yourself at home: Don t drive yourself home if you were given pain medicine for your headache or are having visual symptoms. Instead, have someone else drive you home. Try to sleep when you get home. You should feel much better when you wake up. Cold can help ease migraine symptoms. Put an ice pack on your forehead or at the base of your skull. Put heat on the back of your neck to help ease any neck spasm. Drink only clear liquids or eat a light diet until your symptoms get better. This will help you avoid nausea and vomiting. How to prevent migraines Pay attention to what seems to trigger your headache. Try to avoid the triggers when you can. If you have frequent headaches, consider keeping a headache diary. In it, write down what you were doing, feeling, or eating in the hours before each headache. Show this to your healthcare provider to help find the cause of your headaches. If stress seems to be a trigger for your headaches, figure out what is causing stress in your life. Learn new ways to handle your stress. Ideas include regular exercise, biofeedback, self-hypnosis, yoga, and meditation. Talk with your healthcare provider to find out more information about managing stress. Many books and digital media are also available on this subject. Tyramine is a substance found in many foods. It can trigger a migraine in some people. These foods contain tyramine: Chocolate Yogurt All cheeses, but especially aged cheeses Smoked or pickled fish and meat, including ruelas, caviar, bologna, pepperoni, and salami Liver Avocados Bananas Figs Raisins Red wine Try staying away from these foods for 1 to 2 months to see if you have fewer headaches. How to treat future headaches Take time out at the first sign of a headache, if possible. Find a quiet, dark, comfortable place to sit or lie down. Let yourself relax or sleep. Put an ice pack on your forehead or on the area of greatest pain. A heating pad and massage may help if you are having a muscle spasm and tightness in your neck. If you have been prescribed a medicine to stop a migraine headache, use this at the first warning sign of the headache for best results. First signs may be an aura or pain. If you need to take medicine often for your migraine, talk with your healthcare provider about other ways to prevent your headaches. Follow-up care Follow up with your healthcare provider, or as advised. Talk with your provider if you have frequent headaches. He or she can figure out a treatment plan. Ask if you can have medicine to take at home the next time you get a bad headache. This may keep you from having to visit the emergency department in the future. You may need to see a headache specialist (neurologist) if you continue to have headaches. When to seek medical advice Call your healthcare provider right away if any of these occur: Your head pain gets worse, or doesn t get better within 24 hours You can t keep liquids down (repeated vomiting) Pain in your sinuses, ears, or throat Fever of 100.4 F (38 C) or higher, or as directed by your healthcare provider Stiff neck Extreme drowsiness, confusion, or fainting Dizziness, or dizziness with spinning sensation (vertigo) Weakness in an arm or leg, or on one side of your face Difficulty talking or seeing [id number] [employer]. [address] [place] [address], [place] [address]. All rights reserved. This information is not intended as a substitute for professional medical care. Always follow your healthcare professional's instructions. Follow Up Care 03/23/2021 14:31:08 With:FABIO PEDERSON DO Address: [phone] When:2-4 days [facility] Evaluation + Plan note No data available for this section [facility] Evaluation + Plan note Future Appointments Appointment Date:04/22/2021 09:00:00 AM Scheduled Provider: Location:[facility] Appointment Type:VL [facility] - Renal Artery US/Doppler Complet Appointment Date:05/07/2021 04:00:00 PM Scheduled Provider:FABIO PEDERSON DO Location:[facility] Appointment Type:PC OV [facility] Evaluation + Plan note Future Appointments Appointment Date:05/07/2021 04:00:00 PM Scheduled Provider:FABIO PEDERSON DO Location:[facility] Appointment Type:PC OV [facility] Evaluation + Plan note Future Appointments Appointment Date:11/12/2021 03:30:00 PM Scheduled Provider:FABIO PEDERSON DO Location:[facility] Appointment Type:PC OV Diagnostic Tests PendingFollicle Stimulating Hormone Level 09/21/21Estradiol Level 09/21/21Progesterone Level 09/21/21Testosterone Level Total 09/21/21 [facility] Evaluation + Plan note Future Appointments Appointment Date:06/02/2022 09:30:00 AM Scheduled Provider:FABIO PEDERSON DO Location:[facility] Appointment Type:PC OV Diagnostic Tests PendingVitamin D, 1,25-Dihydroxy 04/26/22 [facility] Evaluation + Plan note Future Appointments Appointment Date:12/09/2022 09:00:00 AM Scheduled Provider:FABIO PEDERSON DO Location:[facility] Appointment Type:PC OV Future Scheduled TestsAlbumin/Creatinine Ratio, Random Urine 06/02/22Complete Metabolic Panel 06/02/22 [facility] Evaluation + Plan note Future Appointments Appointment Date:12/09/2022 09:00:00 AM Scheduled Provider:FABIO PEDERSON DO Location:[facility] Appointment Type:PC OV [facility] Evaluation + Plan note Future Appointments Appointment Date:06/09/2023 09:30:00 AM Scheduled Provider:FABIO PEDERSON DO Location:[facility] Appointment Type:PC OV [facility] Evaluation + Plan note Future Appointments Appointment Date:01/13/2024 04:00:00 PM Scheduled Provider:FABIO PEDERSON DO Location:[facility] Appointment Type:PC OV [facility] Evaluation + Plan note Future Appointments Appointment Date:03/15/2024 03:00:00 PM Scheduled Provider:FABIO PEDERSON DO Location:[facility] Appointment Type:PC OV [facility] Evaluation + Plan note Future Appointments Appointment Date:08/08/2024 02:00:00 PM Scheduled Provider: Location:[facility] Appointment Type:MA Mammogram Screening Bilateral w/ Joni Appointment Date:08/29/2024 09:30:00 AM Scheduled Provider:NIKKI ALEJO Location:[facility] Appointment Type:PC OV Future Scheduled TestsMA Mammo Screening Bilateral w/ Joni 08/08/24 [facility] Evaluation + Plan note Future Appointments Appointment Date:09/01/2024 10:30:00 AM Scheduled Provider:CEE HERNANDEZ DO Location:[facility] Appointment Type:PC OV [facility] Evaluation + Plan note Future Appointments Appointment Date:03/09/2025 09:00:00 AM Scheduled Provider:CEE HERNANDEZ DO Location:[facility] Appointment Type:PC Wellness Annual Future Scheduled TestsComplete Blood Count 09/01/24Lipid Profile 09/01/24Complete Metabolic Panel 09/01/24 [facility] Evaluation note No assessment inform ation available [facility] Work Phone: Hospital Discharge instructions No data available for this section [facility] Progress note No data available for this section [facility] Reason for referral (narrative) No reason for referral information available [facility] Work Phone: Summary Purpose Family History No Family History Records Found Advance Directives No Advanced Directives Records FoundNo Advanced Directives Records FoundNo Advanced Directives Records Found Additional Source Comments Care Team (unrecognized sect ion and content) Care Team Personnel Name: FABIO PEDERSON DO Position: P4 Physician - Primary Care Med Service: Active Provider Member Role: Primary Care Physician Address: Address: [address] [place] [address] Care Team Related Persons Name: OBDULIA KATERINA Address: Home [address] [place] [phone] [place] Care Team Personnel Name: FABIO PEDERSON DO Position: P4 Physician - Primary Care Member Role: Primary Care Physician Address: Address: [address] [place] [address] Care Team Related Persons Name: OBDULIA KATERINA Address: Home [address] [place] [phone] [place] Patient Care team informatio n (unrecognized section and content) Team Status: Active Member Role/Relationship Status Dates Dr. Fabio Pederson DO Family Provider Active Dr. Cee Hernandez DO Primary Care Provider Active Team Status: Inactive Member Role/Relationship Status Dates Dr. Cee Hernandez DO Primary Care Provider Active Start: October 03, 2024 End: October 03, 2024 Dr. Cee Hernandez DO Attending Provider Active St art: October 03, 2024 End: October 03, 2024 Dr. Cee Hernandez DO Referring Provider Active St art: October 03, 2024 End: October 03, 2024 INFORMATION SOURCE (unrecogn ized section and content) DATE CREATED AUTHOR 10/05/2023 [facility] ([place]) DATE CREATED AUTHOR AUTHOR'S ORGANIZ ATION 09/09/2024 [facility] DATE CREATED AUTHOR AUTHOR'S ORGANIZ ATION 10/09/2024 [facility] Goals (unrecognized section and content) Goals may be documented in a n alternate section FOR RECORDS PERTAINING TO PATIENTS WHO ARE OR HAVE BEEN ENROLLED IN A CHEMICAL DEPENDENCY/SUBSTANCEABUSE PROGRAM, SOME INFORMATION MAY BE OMITTED. This clinical summary was aggregated from multiple sources. Caution should be exercised in using it in the provision of clinical care. This summary normalizes information from multiple sources, and as a consequence, information in this document may materially change the coding, format and clinical context of patient data. In addition, data may be omitted in some cases. CLINICAL DECISIONS SHOULD BE BASED ON THE PRIMARY CLINICAL RECORDS. [facility] provides no warranty or guarantee of the accuracy or completeness of information in this document.
[2025-02-11 04:07] LABS: PROGESTERONE 2.7 ng/mL (.)
== END | disposition home or self-care (01) ==
LOC: LAB 13:42
PROVIDERS: PCP Student in an Organized Health Care Education/Training Program
DX: N95.1 Menopausal and female climacteric states (principal); E03.8 Other specified hypothyroidism; E55.9 Vitamin D deficiency, unspecified; R53.81 Other malaise
CPT/HCPCS: 36415; 82306; 82627; 82670; 84144; 84403; 84439; 84443; 84481; 82626